=== PATIENT | female | born 1980 | race Caucasian/White ===

== ENCOUNTER → 2016-12-21 | Outpatient (CLI) | payer BC ==
[~2016-12-21] MED LIST: IBU800 M1 PO; PERCOCET 325 MG1 TA2 PO; Patient's Own Medica PO
== END ==
LOC: SUN.DIA 10:40
DX: O24.419 Gestational diabetes mellitus in pregnancy, unspecified control (principal); Z3A.30 30 weeks gestation of pregnancy; Z71.3 Dietary counseling and surveillance; I10 Essential (primary) hypertension
CPT/HCPCS: G0108

== ENCOUNTER → 2016-12-23 | Outpatient (CLI) | payer BC | LOC: SUN.DIA 09:24 | DX: O24.419 Gestational diabetes mellitus in pregnancy, unspecified control (principal); O13.3 Gestational [pregnancy-induced] hypertension without significant proteinuria, third trimester; Z3A.29 29 weeks gestation of pregnancy; Z79.4 Long term (current) use of insulin; Z71.3 Dietary counseling and surveillance | CPT/HCPCS: G0108 ==

== ENCOUNTER 2017-02-23 07:17 | Inpatient (IN) | payer BC ==
[~2017-02-23] VITALS: Ht 160 cm; Wt 92.3 kg
[2017-02-23] VITALS (45 sets, daily range): BP systolic 104–169; BP diastolic 60–98; PULSE 57–118; TEMP 97.3–98.4
[2017-02-23 08:10] LABS: BASO % 0.5 % (0.0-2.0); EOS # 0.1 (0.0-0.7); EOS % 1.5 % (0-4.0); GRAN # 3.4 (1.4-6.5); GRAN % 52.1 % (42.2-75.2); HEMOGLOBIN 12.1 g/dl (12.5-16.0); LYMPH # 2.7 (1.2-3.4); LYMPH % 40.4 % (20.0-51.0); MEAN CELL VOLUME 84 fl (80.0-100.0); MEAN CORPUSCULAR HEMOGLOBIN 28 pg (27.0-31.0); MEAN CORPUSCULAR HGB CONC 34 g/dl (33.0-37.0); MEAN PLATELET VOLUME 11.8 fl (7.4-10.4); MONO # 0.3 (0.1-0.6); MONO % 5.2 % (1.7-9.3); PLATELET COUNT 173 K/mm3 (130-400); RED BLOOD COUNT 4.26 M/mm3 (4.10-5.30); REDCELL DISTRIBUTION WIDTH-CV 14.4 % (11.5-14.5); WHITE BLOOD COUNT 6.6 K/mm3 (4.8-10.8)
[2017-02-23 08:19] LABS: HEMATOCRIT 35.6 % (37.0-47.0)
[2017-02-24 01:25] VITALS: BP 125/78; PULSE 63; TEMP 98.2
[2017-02-24 05:45] VITALS: BP 134/73; PULSE 64; TEMP 97.9
[2017-02-24 07:02] VITALS: BP 136/95; PULSE 78; TEMP 98
[2017-02-24 09:30] VITALS: BP 128/77; PULSE 85; TEMP 98.1
[2017-02-24 16:04] VITALS: BP 124/74; PULSE 85; TEMP 98.1
[2017-02-24 20:30] VITALS: BP 127/89; PULSE 78; TEMP 97.5
[2017-02-25] MEDS ORDERED: Patient's Own Medica PO (08:10)
[2017-02-25] MEDS ORDERED: IBU800 M1 PO (08:11)
[2017-02-25] MEDS ORDERED: PERCOCET 325 MG1 TA2 PO (08:11)
[2017-02-25 11:21] VITALS: BP 116/81; PULSE 94; TEMP 98.6
== END 2017-02-25 15:30 | disposition home or self-care (01) | DRG 775 ==
LOC: LDR 07:17 → OB 07:17 → LDR 16:11 → OB 21:15 → LDRO 03-05 09:51 → EDSTATUS 03-05 16:09
PROVIDERS: Obstetrics & Gynecology
PROC: 10D07Z6 Extraction of Products of Conception, Vacuum, Via Natural or Artificial Opening (ICD-10-PCS; principal; 2017-02-23)
PROC: 0KQM0ZZ Repair Perineum Muscle, Open Approach (ICD-10-PCS; 2017-02-23)
DX: O13.3 Gestational [pregnancy-induced] hypertension without significant proteinuria, third trimester (principal); O69.81X0 Labor and delivery complicated by cord around neck, without compression, not applicable or unspecified; O70.1 Second degree perineal laceration during delivery; O24.414 Gestational diabetes mellitus in pregnancy, insulin controlled; O75.81 Maternal exhaustion complicating labor and delivery; O09.513 Supervision of elderly primigravida, third trimester; O09.813 Supervision of pregnancy resulting from assisted reproductive technology, third trimester; Z3A.38 38 weeks gestation of pregnancy; Z37.0 Single live birth
CPT/HCPCS: J2400; J2405; J2590; J7030; J7120

== ENCOUNTER → 2019-05-17 | Outpatient (CLI) | payer OTHER | LOC: DIA.ED 14:24 | DX: O24.419 Gestational diabetes mellitus in pregnancy, unspecified control (principal); Z3A.29 29 weeks gestation of pregnancy | CPT/HCPCS: G0108 ==

== ENCOUNTER → 2019-05-31 | Outpatient (CLI) | payer OTHER | LOC: DIA.ED 12:45 | DX: O24.419 Gestational diabetes mellitus in pregnancy, unspecified control (principal); Z3A.30 30 weeks gestation of pregnancy | CPT/HCPCS: G0108 ==

== ENCOUNTER → 2019-06-27 | Outpatient (CLI) | payer OTHER | LOC: DIA.ED 06-22 16:41 | DX: O24.419 Gestational diabetes mellitus in pregnancy, unspecified control (principal); Z3A.27 27 weeks gestation of pregnancy; Z79.4 Long term (current) use of insulin | CPT/HCPCS: G0108 ==

== ENCOUNTER 2019-07-05 03:02 | Inpatient (IN) | payer OTHER ==
[~2019-07-05] VITALS: Ht 160 cm; Wt 90.5 kg
[2019-07-05] VITALS (21 sets, daily range): BP systolic 103–143; BP diastolic 55–87; PULSE 58–100; TEMP 97.4–98.2
--- NOTE | 2019-07-05 03:10 | NUR ---
G2L1 at 36 weeks and 6 days arrives to unit with complaint of spontaneous rupture of membranes and contractions. Pt states that her water broke around 0130, large amount of clear fluid, and contractions started soon after. Baby position had been transverse. Dr. Barraza at bedside upon admission with US. Vertex position confirmed. SVE by Dr. Barraza 3/-2, grossly ruptured. Verbal orders to admit patient and pt would like epidural as soon as possible. Pt with gdm and essential hypertension. GDM is diet controlled.
[2019-07-05 03:37] LABS: BASO % 0.3 % (0.0-2.0); EOS # 0.1 (0.0-0.7); GRAN # 8.1 (1.4-6.5); GRAN % 68.4 % (42.2-75.2); HEMATOCRIT 42.5 % (37.0-47.0); HEMOGLOBIN 14.6 g/dl (12.5-16.0); LYMPH # 2.9 (1.2-3.4); LYMPH % 24.1 % (20.0-51.0); MEAN CELL VOLUME 89 fl (80.0-100.0); MEAN CORPUSCULAR HEMOGLOBIN 30 pg (27.0-31.0); MEAN CORPUSCULAR HGB CONC 34 g/dl (33.0-37.0); MEAN PLATELET VOLUME 10.5 fl (7.4-10.4); MONO # 0.7 (0.1-0.6); MONO % 5.9 % (1.7-9.3); PLATELET COUNT 221 K/mm3 (130-400); REDCELL DISTRIBUTION WIDTH-CV 13.9 % (11.5-14.5)
--- NOTE | 2019-07-05 03:40 | NUR ---
18 g IV started in right wrist with 1 attempt. Admission labs obtained off of IV start. Lactated Ringers infusing to gravity. Mackenzie Yost on unit, updated on patients desire for epidural.
--- NOTE | 2019-07-05 03:46 | NUR ---
0340 - Michael Yost CRNA at bedside for epidural placement. Risks, benefits, and procedure reviewed with patient. Pt repositioned to sitting on edge of bed. 0345 - Difficulty tracing FHR due to positioning. 0346 - Test dose by TRAVIS Parr, pt denies any adverse reactions. 0350 - Pt positioned to wedge right. Plan of care reviewed. Safety precautions reviewed. Call light within reach. See Anesthesia record.
[2019-07-05 04:17] LABS: ALBUMIN 3.3 gm/dL (3.5-5.0); BILIRUBIN,TOTAL 0.4 mg/dL (0.0-1.0); CREATININE, serum 0.61 (0.52-1.25); POTASSIUM 3.6 mmol/L (3.4-5.0); TOTAL PROTEIN 6.7 gm/dL (6.4-8.2)
[2019-07-05] MEDS ORDERED: PRENATAL (04:49)
[2019-07-05 05:20] LABS: COLLECTION METHOD CLEAN CATCH
[2019-07-05 05:35] LABS: MUCOUS Present /lpf; PH 8 (5-8); SQUAMOUS EPITHELIAL 0-2 /hpf; URINE APPEARANCE Clear; URINE BACTERIA None Seen /hpf; URINE BILIRUBIN Negative (NEGATIVE); URINE BLOOD 1+ (NEGATIVE); URINE COLOR Yellow; URINE GLUCOSE Negative (NEGATIVE); URINE KETONE 1+ (NEGATIVE); URINE LEUKOCYTE ESTERASE Negative (NEGATIVE); URINE NITRATE Negative (NEGATIVE); URINE PROTEIN(semi-quant) Negative (NEGATIVE); URINE RBC >50 /hpf; URINE UROBILINOGEN Negative (NEGATIVE); URINE WBC 0-2 /hpf
--- NOTE | 2019-07-05 06:20 | NUR ---
Report received from Lawrence RAMIREZ. Pt feeling pressure with contractions, SVE: 9/100/-1. FHR with 2 recurrent variable decelerations. FHR decreased to 60-70bpm for 50 seconds. 0632:Dr Barraza director recreation and notified of pt progress, feeling pressure and recurrent variable decelerations. Physician will be on her way. Pt prepped for delivery. Huertas catheter removed. O2 on at 10L per mask. 0641:Pt feeling urge to push and a lot of pressure with contractions. SVE: complete +1. 0645:Dr Barraza here and prepped for delivery. Pt pushes through one contraction. 0651: of infants head and shoulders. Cord was bunched up around the neck, no nuchal noted. Cord clamped and infant skin to skin and in care of Jose J RAMIREZ. 0702:Spontaneous delivery of placenta. LR with pitocin started at 333ml/hr per protocol. 2nd degree laceration, repaired by Dr Barraza. Fundus firm, bleeding WNL. Pericare done. Placenta sent to pathology for delivery.
--- NOTE | 2019-07-05 10:00 | NUR ---
Pt up and ambulates to bathroom with assist. Voids 400cc. Pericare instructions reviewed. New pads and ice pack in place. Pt to wheelchair and to room 216. Fundus firm, bleeding WNL.
[2019-07-06 04:00] VITALS: BP 122/68; PULSE 61; TEMP 97.7
[2019-07-06 08:18] VITALS: BP 116/77; PULSE 71
[2019-07-06] MEDS ORDERED: PERCOCET 325 MG1 TA2 PO (08:43)
[2019-07-06] MEDS ORDERED: MOTRIN 800800 MG/TAB PO (08:43)
== END 2019-07-06 15:25 | disposition home or self-care (01) | DRG 806 ==
LOC: LDRO 03:02 → LDR 03:30 → OB 03:30 → LDRO 03:30 → OB 04:47 → LDR 04:47 → OB 04:47
PROVIDERS: Student in an Organized Health Care Education/Training Program; ADMIT Obstetrics & Gynecology
PROC: 10E0XZZ Delivery of Products of Conception, External Approach (ICD-10-PCS; principal; 2019-07-05)
PROC: 0KQM0ZZ Repair Perineum Muscle, Open Approach (ICD-10-PCS; 2019-07-05)
DX: O42.013 Preterm premature rupture of membranes, onset of labor within 24 hours of rupture, third trimester (principal); O10.92 Unspecified pre-existing hypertension complicating childbirth; Z37.0 Single live birth; O24.420 Gestational diabetes mellitus in childbirth, diet controlled; O99.214 Obesity complicating childbirth; E66.9 Obesity, unspecified; O99.52 Diseases of the respiratory system complicating childbirth; O99.02 Anemia complicating childbirth; D64.9 Anemia, unspecified; O70.1 Second degree perineal laceration during delivery; O76 Abnormality in fetal heart rate and rhythm complicating labor and delivery; Z3A.36 36 weeks gestation of pregnancy; Z23 Encounter for immunization
CPT/HCPCS: J2405; J2590; J7120

== ENCOUNTER 2022-12-14 08:47 | Emergency (ER) | payer BC ==
[~2022-12-14] VITALS: Ht 160 cm; Wt 90.9 kg
[~2022-12-14 08:47] MED LIST changes: +MOTRIN 800800 MG/TAB PO; +PRENATAL
[2022-12-14 08:57] VITALS: TEMP 97.5
[2022-12-14 09:45] LABS: BASO # 0.1 K/mm3 (0.0-0.2); BASO % 0.6 % (0.0-2.0); EOS # 0.5 K/mm3 (0.0-0.7); EOS % 4.5 % (0.0-4.0); GRAN % 64.5 % (42.2-75.2); HEMATOCRIT 40.4 % (37.0-47.0); HEMOGLOBIN 12.5 g/dl (12.5-16.0); LYMPH # 2.6 K/mm3 (1.2-3.4); MEAN CELL VOLUME 74 fl (80.0-100.0); MEAN CORPUSCULAR HEMOGLOBIN 23 pg (27-31); MEAN CORPUSCULAR HGB CONC 31 g/dl (33.0-37.0); MEAN PLATELET VOLUME 9.9 fl (7.4-10.4); MONO # 0.7 K/mm3 (0.1-0.6); MONO % 6.1 % (1.7-9.3); PLATELET COUNT 380 K/mm3 (130-400); RED BLOOD COUNT 5.45 M/mm3 (4.10-5.30); REDCELL DISTRIBUTION WIDTH-CV 17.2 % (11.5-14.5)
[2022-12-14 09:57] LABS: ANION GAP 13 mmol/L (7-16); BLOOD UREA NITROGEN 15 mg/dL (7-19); CALCIUM 9.7 mg/dL (8.4-10.2); CARBON DIOXIDE 20 mmol/L (22-29); CHLORIDE 104 mmol/L (98-107); CREATININE, serum 0.82 mg/dL (0.57-1.11); GLUCOSE 153 mg/dL (70-99); POTASSIUM 4.1 mmol/L (3.5-4.5); SODIUM 137 mmol/L (136-145)
[2022-12-14 10:12] LABS: TROPONIN-I < 0.010 ng/mL (0.00-0.033)
[2022-12-14] MEDS ORDERED: ELIQUIS 5MG PO (10:44)
[2022-12-14 11:06] VITALS: BP 114/86; PULSE 88
== END 2022-12-14 11:11 | disposition home or self-care (01) ==
LOC: COL.ER 08:47
PROVIDERS: Emergency Medicine
DX: I26.94 Multiple subsegmental thrombotic pulmonary emboli without acute cor pulmonale (principal); Z91.040 Latex allergy status
CPT/HCPCS: Q9967

== ENCOUNTER → 2023-01-19 | Outpatient (CLI) | payer BC ==
[~2023-01-19] MED LIST changes: +ELIQUIS 5MG PO
== END ==
LOC: COL.VAS 12:48
DX: I26.99 Other pulmonary embolism without acute cor pulmonale (principal)